=== PATIENT | female | born 1930 | race Two or more races ===

== ENCOUNTER 2017-07-19 16:29 | Emergency (ER) | payer MEDICARE, OTHER ==
[~2017-07-19] VITALS: Ht 152.4 cm; Wt 59.0 kg
[2017-07-19 16:31] VITALS: Ht 152.4 cm; Wt 59.0 kg
[2017-07-19] MEDS ORDERED: SOD CHLORIDE 0.9% 500 ML IV STA (17:53)
[2017-07-19 18:30] LABS: BASOPHIL # 0.1 10^3/ul (0.0-0.1); BASOPHILS % 0.7 % (0.0-2.0); EOSINOPHILS # 0.1 10^3/ul (0.0-0.5); EOSINOPHILS % 1.9 % (0.0-7.0); HEMATOCRIT 38.4 % (37.0-47.0); HEMOGLOBIN 12.1 g/dl (12.0-16.0); LYMPHOCYTES # 1.9 10^3/ul (0.8-2.9); MEAN CORPUSCULAR HEMOGLOBIN 30.3 pg (29.0-33.0); MEAN CORPUSCULAR HGB CONC 31.5 g/dl (32.0-37.0); MEAN CORPUSCULAR VOLUME 96.2 fl (82.0-101.0); MEAN PLATELET VOLUME 9.9 fl (7.4-10.4); MONOCYTE # 0.6 10^3/ul (0.3-0.9); MONOCYTES % 8.5 % (0.0-11.0); NEUTROPHIL # 4.2 10^3/ul (1.6-7.5); NEUTROPHILS % 61.8 % (39.0-77.0); PLATELET COUNT 264 10^3/UL (140-415); RED BLOOD COUNT 3.99 10^6/ul (4.20-5.40); RED CELL DISTRIBUTION WIDTH 13.8 % (11.5-14.5); WHITE BLOOD COUNT 6.8 10^3/ul (4.8-10.8)
[2017-07-19] MEDS ORDERED: LEVO50TA74 PO (18:33)
[2017-07-19] MEDS ORDERED: ASPI81TA50 PO (18:34)
[2017-07-19] MEDS ORDERED: DONE10TA7 PO (18:35)
[2017-07-19] MEDS ORDERED: LOSA50TA6 PO (18:35)
[2017-07-19] MEDS ORDERED: TRAM-40 PO (18:35)
[2017-07-19] MEDS ORDERED: ROSU20TA PO (18:36)
[2017-07-19] MEDS ORDERED: TRAZ50TA18 PO (18:36)
[2017-07-19] MEDS ORDERED: CHOL200073 PO (18:37)
[2017-07-19 18:50] LABS: ALANINE AMINOTRANSFERASE 31 IU/L (13-69); ALBUMIN 4.1 g/dl (3.3-4.9); ALBUMIN/GLOBULIN RATIO 1.28; ALKALINE PHOSPHATASE 118 IU/L (42-121); ANION GAP 13 (8-16); ASPARTATE AMINO TRANSFERASE 27 IU/L (15-46); BILIRUBIN,INDIRECT 0.5 mg/dl (0-1.1); BILIRUBIN,TOTAL 0.5 mg/dl (0.2-1.3); BLOOD UREA NITROGEN 10 mg/dl (7-20); CALCIUM 9.5 mg/dl (8.4-10.2); CARBON DIOXIDE 30 mmol/L (21-31); CHLORIDE 102 mmol/L (97-110); CREATININE 0.76 mg/dl (0.44-1.00); GLUCOSE 97 mg/dl (70-220); POTASSIUM 4.1 mmol/L (3.5-5.1); SODIUM 141 mmol/L (135-144); TOTAL PROTEIN 7.3 g/dl (6.1-8.1)
[2017-07-19 18:52] LABS: ADD UMIC YES; UR ASCORBIC ACID NEGATIVE (NEGATIVE); UR BILIRUBIN (Dip) NEGATIVE (NEGATIVE); UR BLOOD (Dip) NEGATIVE (NEGATIVE); UR CLARITY CLEAR (CLEAR); UR COLOR YELLOW (YELLOW); UR GLUCOSE (Dip) NEGATIVE (NEGATIVE); UR KETONES (Dip) NEGATIVE (NEGATIVE); UR LEUKOCYTE ESTERASE (Dip) 1+ Leu/ul (NEGATIVE); UR NITRITE (Dip) NEGATIVE (NEGATIVE); UR RBC 1 /HPF (0-5); UR SPECIFIC GRAVITY (Dip) 1.009 (1.003-1.030); UR TOTAL PROTEIN (Dip) NEGATIVE (NEGATIVE); UR UROBILINOGEN (Dip) NEGATIVE (NEGATIVE)
[2017-07-19 19:01] LABS: TROPONIN-I < 0.012 ng/ml (0.00-0.12)
--- NOTE | 2017-07-19 19:04 | RADRPT ---
PROCEDURE: XR Chest. CLINICAL INDICATION: Pain. TECHNIQUE: Single frontal chest x-ray. COMPARISON: None. FINDINGS: The cardiomediastinal silhouette is unremarkable. There is no congestive heart failure.. No focal i nfiltrate is seen. There is no pleural effusion. There is no pneumothorax. There are degenerative changes of the thoracic spine.. IMPRESSION: No CHF or infiltrate. RPTAT: [facility] .Ramirez Webster MD, MD Date Time Electronically viewed and signed by .Ramirez Webster MD, on 07/19/2017 19:04 .K/
[2017-07-19 19:26] LABS: UR BACTERIA FEW /HPF (NONE SEEN)
--- NOTE | 2017-07-19 20:11 | ERD ---
ER Documentation Chief Complaint Chief Complaint FEELS FAINTING, NO CO , NO SOB HPI This is a 86-year-old female presents to the emergency room for evaluation of generalized weakness. She states that she has been weak over the past 5 days and feels like she needs to faint. The patient denies fainting, denies any chest pain, denies fevers or chills but does state that she sometimes has a discomfort in her chest. The patient came to the ER today for evaluation of her symptoms and denies any aggravating or relieving factors. ROS All systems reviewed and are negative except as per history of present illness. Medications Home Meds Reported Medications Cholecalciferol (Vitamin D3) (VITAMIN D-3) 2,000 Unit Capsule, 2000 UNIT PO DAILY, CAP 07/19/17 Rosuvastatin Calcium* (Crestor*) 20 Mg Tablet, 20 MG PO QHS, #30 TAB 07/19/17 Trazodone Hcl* (Desyrel*) 50 Mg Tab, 50 MG PO QHS, #30 TAB 07/19/17 Donepezil* (Aricept*) 10 Mg Tablet, 10 MG PO DAILY, TAB 07/19/17 Losartan Potassium* (Losartan Potassium*) 50 Mg Tablet, 50 MG PO DAILY, TAB 07/19/17 Tramadol Hcl* (Ultram*) 50 Mg Tablet, 50 MG PO TID Y for PAIN, TAB 07/19/17 Aspirin (Aspir-Low) 81 Mg Tablet.dr, 81 MG PO DAILY 07/19/17 Levothyroxine Sodium* (Levothyroxine Sodium*) 50 Mcg Tablet, 50 MCG PO BEFORE BREAKFAST, #30 TAB 07/19/17 Allergies Allergies: Coded Allergies: codeine (Unverified Allergy, Unknown, 07/19/17) naproxen (Unverified Allergy, Unknown, 07/19/17) PMhx/Soc History of Surgery: No Anesthesia Reaction: No Hx Neurological Disorder: No Hx Respiratory Disorders: No Hx Cardiac Disorders: Yes (HTN, CHOLESTEROL) Hx Psychiatric Problems: No Hx Miscellaneous Medical Probl: Yes (THYROID) Hx Alcohol Use: No Hx Substance Use: No Hx Tobacco Use: No Smoking Status: Never smoker Physical Exam Vitals Vital Signs Date Time Temp Pulse Resp B/P Pulse Ox O2 Delivery O2 Flow Rate FiO2 07/19/17 16:31 98.1 70 18 178/79 99 Physical Exam INITIAL VITAL SIGNS: Reviewed by me GENERAL: The patient is well developed and appropriate for usual state of health in no apparent distress HEENT: Pupils equal, round, and reactive to light. EOMI. There is no scleral icterus. NECK: C-spine is soft and supple, there is no meningismus. There is no cervical lymphadenopathy. LUNGS: Clear to auscultation bilaterally. There are no rales, wheezes or rhonchi. HEART: Regular rate and rhythm, no murmurs, clicks, rubs or gallops. ABDOMEN: Soft, non-tender, non-distended. There are bowel sounds in all four quadrants. No rebound or guarding. EXTREMITIES: There is no peripheral cyanosis or edema. No focal swelling or erythema. NEUROLOGICAL: The patient moves all four extremities with 5/5 strength. Cranial nerves II - XII are intact. Normal gait. Alert and oriented SKIN: There is no apparent rash or petechiae. HEME/LYMPHATIC: There is no evidence of excessive bruising or lymphedema. PSYCHIATRIC: The patient does not appear anxious or depressed. Result Diagram: 07/19/17180907/19/171809 Results 24 hrs Laboratory Tests Test 07/19/17 18:10 07/19/17 18:15 White Blood Count 6.810^3/ul Red Blood Count 3.9910^6/ul Hemoglobin 12.1g/dl Hematocrit 38.4% Mean Corpuscular Volume 96.2fl Mean Corpuscular Hemoglobin 30.3pg Mean Corpuscular Hemoglobin Concent 31.5g/dl Red Cell Distribution Width 13.8% Platelet Count 16237^3/UL Mean Platelet Volume 9.9fl Neutrophils % 61.8% Lymphocytes % 27.0% Monocytes % 8.5% Eosinophils % 1.9% Basophils % 0.7% Nucleated Red Blood Cells % 0.0/100WBC Neutrophils # 4.210^3/ul Lymphocytes # 1.910^3/ul Monocytes # 0.610^3/ul Eosinophils # 0.110^3/ul Basophils # 0.110^3/ul Nucleated Red Blood Cells # 0.010^3/ul Sodium Level 141mmol/L Potassium Level 4.1mmol/L Chloride Level 102mmol/L Carbon Dioxide Level 30mmol/L Anion Gap 13 Blood Urea Nitrogen 10mg/dl Creatinine 0.76mg/dl Glucose Level 97mg/dl Calcium Level 9.5mg/dl Total Bilirubin 0.5mg/dl Direct Bilirubin 0.00mg/dl Indirect Bilirubin 0.5mg/dl Aspartate Amino Transf (AST/SGOT) 27IU/L Alanine Aminotransferase (ALT/SGPT) 31IU/L Alkaline Phosphatase 118IU/L Troponin I < 0.012ng/ml Total Protein 7.3g/dl Albumin 4.1g/dl Globulin 3.20g/dl Albumin/Globulin Ratio 1.28 Lipase 174U/L Urine Color YELLOW Urine Clarity CLEAR Urine pH 5.0 Urine Specific [place] 1.009 Urine Ketones NEGATIVEmg/dL Urine Nitrite NEGATIVEmg/dL Urine Bilirubin NEGATIVEmg/dL Urine Urobilinogen NEGATIVEmg/dL Urine Leukocyte Esterase 1+Janet/ul Urine Microscopic RBC 1/HPF Urine Microscopic WBC 6/HPF Urine Bacteria FEW/HPF Urine Hemoglobin NEGATIVEmg/dL Urine Glucose NEGATIVEmg/dL Urine Total Protein NEGATIVEmg/dl Current Medications Medications (Trade) Dose Ordered Sig/Raven Route PRN Reason Start Time Stop Time Status Last Admin Dose Admin Sodium Chloride (NS) 500 ml @ 500 mls/hr Q1H STAT IV 07/19/17 17:53 07/19/17 18:52 DC 07/19/17 18:34 Procedures/MDM EKG: Rate/Rhythm: [Normal Sinus Rhythm] QRS, ST, T-waves: [No changes consistent w/ acute ischemia] Impression: [No evidence of ischemia or arrhythmia] Chest X-ray 1V Interpreted by me: Soft Tissue: No acute abnormalities Bones: No acute abnormalities Mediastinum/Cardiac Silhouette/Lungs: [No acute abnormalities] This 86-year-old female presents to the emergency room for evaluation of generalized weakness. The patient was hemodynamically stable on my exam and after thorough history a did ascertain that this patient started tramadol 2 days ago and states that her symptoms started approximately 2 days ago as well. I advised patient to discontinue the use of tramadol. The patient denies any active chest pain at this time, her EKG is nonischemic, chest x-ray is clear. Troponin is negative at this time. The patient states she feels much better at this time, her daughters at bedside and is agreeable to take her home. The patient does have a few white blood cells in her urine and will be discharged home with a prescription for Macrobid. Departure Diagnosis: Primary Impression: Acute weakness Additional Impressions: Medication reaction Acute cystitis Condition: Stable LINO MEEKS DO Jul 19, 2017 20:11
[2017-07-19] MEDS ORDERED: NITR-58 PO (20:12)
[2017-07-19 20:37] VITALS: BP 138/68; PULSE 72; RESP 18; TEMP 98.1
== END 2017-07-19 20:39 | disposition home or self-care (01) ==
LOC: E/R 16:29
DX: R53.1 Weakness (principal); T40.4X5A Adverse effect of other synthetic narcotics, initial encounter; N30.00 Acute cystitis without hematuria; I10 Essential (primary) hypertension; Z79.82 Long term (current) use of aspirin
CPT/HCPCS: 36415; 71010; 80053; 81001; 83690; 84484; 85025; 93005; 99285; J7040

== ENCOUNTER 2018-05-21 22:23 | Emergency (ER) | END 2018-05-21 22:36 | disposition left against medical advice (07) ==